=== PATIENT | female | born 1965 | race Caucasian/White ===

== ENCOUNTER 2017-06-03 15:06 | Emergency (ER) | payer OTHER ==
[~2017-06-03] VITALS: Ht 157.5 cm; Wt 82.2 kg
[2017-06-03 17:47] VITALS: BP 115/61
== END 2017-06-03 17:49 | disposition home or self-care (01) ==
LOC: EME 15:06
DX: S00.83XA Contusion of other part of head, initial encounter (principal); W51.XXXA Accidental striking against or bumped into by another person, initial encounter; Z88.6 Allergy status to analgesic agent
CPT/HCPCS: 70450; 70486; 99281; 99284

== ENCOUNTER 2017-10-27 12:55 | Emergency (ER) | payer OTHER ==
[~2017-10-27] VITALS: Ht 157.5 cm; Wt 79.5 kg
[2017-10-27 15:47] VITALS: BP 123/63
== END 2017-10-27 15:48 | disposition home or self-care (01) ==
LOC: EME 12:55
DX: S06.0X0A Concussion without loss of consciousness, initial encounter (principal); V43.52XA Car driver injured in collision with other type car in traffic accident, initial encounter; Y92.410 Unspecified street and highway as the place of occurrence of the external cause; M06.9 Rheumatoid arthritis, unspecified; Z87.891 Personal history of nicotine dependence; Z88.5 Allergy status to narcotic agent
CPT/HCPCS: 70450; 99281; 99284